=== PATIENT | male | born 1985 | race Two or more races ===

== ENCOUNTER 2023-06-15 15:29 | Emergency (ER) | payer OTHER ==
[~2023-06-15] VITALS: Ht 165.1 cm; Wt 89.8 kg
[2023-06-15] MEDS ORDERED: LOSARTAN POTASS25 MG (15:33)
[2023-06-15 19:38] LABS: HEMATOCRIT 42.8 % (39.0-48.0); HEMOGLOBIN 14.4 g/dL (13-16.00); MEAN CELL VOLUME 88.8 fL (80.0-100.00); MEAN CORPUSCULAR HEMOGLOBIN 29.9 pg (27.00-32.0); MEAN CORPUSCULAR HGB CONC 33.6 g/dl (32.0-36.0); RED BLOOD COUNT 4.82 M/uL (4.00-6.00); RED CELL DISTRIBUTION WIDTH 13.5 % (11.5-14.5)
[2023-06-15 19:46] LABS: ALBUMIN 3.9 gm/dL (3.4-5.0); BILIRUBIN TOTAL 0.39 mg/dL (0.3-1.2); CALCIUM 8.5 mg/dL (8.5-10.1); CREATININE SERUM 1.21 mg/dL (0.70-1.30); GFR 67.85; POTASSIUM 4.06 mEq/L (3.5-5.1); TOTAL PROTEIN 7.9 gm/dL (6.4-8.2)
[2023-06-15 19:53] LABS: PLATELET COUNT 83 K/uL (150-450)
[2023-06-15 20:07] LABS: INR 1.14; PARTIAL THROMBOPLASTIN TIME 37.3 SECONDS (22.0-34.0); PROTHROMBIN TIME 11.9 SECONDS (9.0-11.5)
== END 2023-06-15 22:04 | disposition home or self-care (01) ==
LOC: ER 15:30
PROVIDERS: General Practice
DX: B34.9 Viral infection, unspecified (principal); Z20.822 Contact with and (suspected) exposure to COVID-19

== ENCOUNTER 2023-06-17 12:19 | Inpatient (IN) | payer OTHER ==
[~2023-06-17] VITALS: Ht 165.1 cm; Wt 88.0 kg
[~2023-06-17 12:19] MED LIST: LOSARTAN POTASS25 MG
[2023-06-17 14:36] LABS: HEMATOCRIT 47.9 % (39.0-48.0); HEMOGLOBIN 16.3 g/dL (13-16.00); MEAN CELL VOLUME 87.9 fL (80.0-100.00); MEAN CORPUSCULAR HEMOGLOBIN 29.8 pg (27.00-32.0); MEAN CORPUSCULAR HGB CONC 33.9 g/dl (32.0-36.0); RED BLOOD COUNT 5.45 M/uL (4.00-6.00); RED CELL DISTRIBUTION WIDTH 14.1 % (11.5-14.5)
[2023-06-17 14:55] LABS: ALBUMIN 3.6 gm/dL (3.4-5.0); BILIRUBIN TOTAL 0.57 mg/dL (0.3-1.2); CALCIUM 9.2 mg/dL (8.5-10.1); CREATININE SERUM 1.1 mg/dL (0.70-1.30); GFR 75.74; GLOBULINA 4.4 G/DL (2.4-3.5); INR 1.02; PARTIAL THROMBOPLASTIN TIME 36.6 SECONDS (22.0-34.0); POTASSIUM 4.19 mEq/L (3.5-5.1); PROTHROMBIN TIME 10.7 SECONDS (9.0-11.5)
[2023-06-17 15:06] LABS: PLATELET COUNT 32 K/uL (150-450)
[2023-06-17 21:14] LABS: ERYTHROCYTE SEDIMENTATION RATE 13 mm/hr
[2023-06-17 21:28] LABS: PH,URINE 5.5 (5.0-8.0); URINE APPEARANCE Clear; URINE BILIRRUBIN Negative (NEGATIVE); URINE BLOOD Small; URINE COLOR Yellow; URINE LEUKOCYTE Negative; URINE NITRATE Negative; URINE PROTEIN Trace (NEGATIVE)
[2023-06-17 21:30] LABS: URINE EPITHELIAL CELLS 1.8 uL (0.0-38.8); URINE RBC 8.4 uL (0.0-20.8); URINE WBC 1.8 uL (0.0-23.2)
[2023-06-17 21:38] LABS: URINE GLUCOSE 100 MG/DL (NEGATIVE)
[2023-06-17 21:38] LABS: PLT IN CITRATE 36 K/uL (150-450)
[2023-06-18 23:03] LABS: HEMOGLOBIN 14.6 g/dL (13-16.00); MEAN CELL VOLUME 88.6 fL (80.0-100.00); MEAN CORPUSCULAR HGB CONC 33.9 g/dl (32.0-36.0); RED BLOOD COUNT 4.85 M/uL (4.00-6.00); RED CELL DISTRIBUTION WIDTH 13.8 % (11.5-14.5)
[2023-06-18 23:14] LABS: PLATELET COUNT 76 K/uL (150-450)
[2023-06-19 06:52] LABS: HEMATOCRIT 43.5 % (39.0-48.0); HEMOGLOBIN 14.9 g/dL (13-16.00); MEAN CELL VOLUME 87.9 fL (80.0-100.00); MEAN CORPUSCULAR HEMOGLOBIN 30.1 pg (27.00-32.0); MEAN CORPUSCULAR HGB CONC 34.2 g/dl (32.0-36.0); RED BLOOD COUNT 4.95 M/uL (4.00-6.00); RED CELL DISTRIBUTION WIDTH 13.6 % (11.5-14.5)
[2023-06-19 06:54] LABS: PLATELET COUNT 80 K/uL (150-450)
== END 2023-06-19 12:42 | disposition home or self-care (01) | DRG 866 ==
LOC: ER 12:20 → MEDJ 19:06 → MEDI 20:28 → MEDJ 21:20
PROVIDERS: General Practice; Internal Medicine Hematology & Oncology; ADMIT Internal Medicine; ATTEND Internal Medicine
PROC: BW40ZZZ Ultrasonography of Abdomen (ICD-10-PCS; principal; 2023-06-17)
DX: A90 Dengue fever [classical dengue] (principal); B34.9 Viral infection, unspecified; D69.6 Thrombocytopenia, unspecified; D72.819 Decreased white blood cell count, unspecified; R74.01 Elevation of levels of liver transaminase levels